=== PATIENT | female | born 1960 | race Caucasian/White ===

== ENCOUNTER → 2025-02-15 08:34 | Outpatient (CLI) | payer OTHER, SELFPAY ==
--- NOTE | 2025-02-15 08:36 | DI.RAD.S_ITS ---
PROCEDURE: XR HIP W PEL IF DONE RT 2V INDICATIONS: rt hip pain TECHNIQUE: AP pelvis with lateral view(s) of the right hip(s). COMPARISON: None. FINDINGS: Bones: No fractures or dislocations. Pelvic ring appears intact. No suspicious bony lesions. Nonuniform joint space narrowing and osteophytic lipping of the acetabuli. Subchondral cystic change without bony deformity of the femoral head. Soft tissues: The visualized bowel gas pattern is normal. No suspicious soft tissue calcifications. IMPRESSION: Moderate right hip osteoarthritis. Kellgren-Oumar Grade 3. Dictated by: Kris Hayward M.D. on 02/15/2025 at 10:18 Approved by: Kris Hayward M.D. on 02/15/2025 at 10:18
== END ==
LOC: RAD 08:36
PROVIDERS: PCP Nurse Practitioner Family; Referring Provider Nurse Practitioner Family; Visit Provider Nurse Practitioner Family
DX: M16.11 Unilateral primary osteoarthritis, right hip (principal); M25.551 Pain in right hip; Z11.59 Encounter for screening for other viral diseases; Z13.220 Encounter for screening for lipoid disorders; R03.0 Elevated blood-pressure reading, without diagnosis of hypertension
CPT/HCPCS: 73502